=== PATIENT | male | born 1955 | race Native Hawaiian/Other Pacific Islander ===

== ENCOUNTER 2016-10-09 05:32 | Emergency (ER) | payer OTHER ==
[2016-10-09 06:31] LABS: Albumin 4.2 g/dL (3.9-5); Alkaline Phosphatase 78 units/L (35-129); Chloride 92.2 mmol/L (98-107); Potassium 3.6 mmol/L (3.6-5.0); Sodium 132 mmol/L (137-145)
[2016-10-09 06:41] LABS: Basophils % (Auto) 0.9 % (0.0-1.8); Eosinophils % (Auto) 0.3 % (0.0-4.3); Hematocrit 44.8 % (35.5-45.6); Hemoglobin 15.6 gm/dl (11.8-15.2); Mean Corpuscular HGB Conc 35 % (32-34); Mean Corpuscular Hemoglobin 32 pg (28-32); Mean Corpuscular Volume 91 fl (84-94); Platelet Count 375 K/mm3 (140-440); Red Blood Count 4.95 M/mm3 (3.65-5.03); Red Cell Distribution Width 12.7 % (13.2-15.2); White Blood Count 11.9 K/mm3 (4.5-11.0)
[2016-10-09 07:09] LABS: Alanine Aminotransferase 17 units/L (7-56); Albumin/Globulin Ratio 1.3 %; Amylase 29 units/L (27-131); Anion Gap 21 mmol/L; Blood Urea Nitrogen 4 mg/dL (9-20); Calcium 8.5 mg/dL (8.4-10.2); Carbon Dioxide 22 mmol/L (22-30); Glucose 128 mg/dL (75-100); Lipase 19 units/L (13-60); Total Protein 7.4 g/dL (6.3-8.2)
[2016-10-09] MEDS ORDERED: ALUM-MAG HYDROX-SIMETH 200-200-20MG/5ML PO ONE (08:16)
[2016-10-09] MEDS ORDERED: PEPCID IV ONE (08:16)
--- NOTE | 2016-10-09 08:21 | Emergency Department Report ---
ED Abdominal Pain HPI - General Chief Complaint: Abdominal Pain Stated Complaint: ABD PAIN Time Seen by Provider: 10/09/16 08:08 Source: patient, family Mode of arrival: Ambulatory Limitations: Language Barrier - History of Present Illness Initial Comments: 61-year-old male with a history of alcohol use here with complaint of several days of abdominal pain. Patient states that his pain is seemingly worsened over the last 2 days. Complains of pain in the epigastric region. Denies melena or hematochezia. No fevers chills nausea vomiting. Pain is worse with food and worse with laying down. He has some intermittent cough. -: Gradual Location: epigastric Radiation: none Quality: burning Consistency: intermittent Worsens With: eating Associated Symptoms: denies: nausea, constipation, hematemesis, hematochezia, melena Treatments Prior to Arrival: other (single dose of PPI) - Related Data Previous Rx's Medication Instructions Recorded Last Taken Type Famotidine [Pepcid] 20 mg PO BID #60 tablet 10/09/16 Unknown Rx Allergies Allergy/AdvReac Type Severity Reaction Status Date / Time No Known Allergies Allergy Verified 10/09/16 05:43 ED Review of Systems ROS: Stated complaint: ABD PAIN Other details as noted in HPI Comment: All other systems reviewed and negative Constitutional: denies: chills, fever Eyes: denies: eye pain, eye discharge, vision change ENT: denies: ear pain, throat pain Respiratory: denies: cough, shortness of breath, wheezing Cardiovascular: denies: chest pain, palpitations Endocrine: no symptoms reported Gastrointestinal: denies: abdominal pain, nausea, diarrhea Genitourinary: denies: urgency, dysuria Musculoskeletal: denies: back pain, joint swelling, arthralgia Skin: denies: rash, lesions Neurological: denies: headache, weakness, paresthesias Psychiatric: denies: anxiety, depression Hematological/Lymphatic: denies: easy bleeding, easy bruising ED Past Medical Hx - Past Medical History Previous Medical History?: Yes Hx Hypertension: Yes - Surgical History Past Surgical History?: No - Family History Family history: no significant - Social History Smoking Status: Former Smoker Substance Use Type: Alcohol - Medications Home Medications: Home Medications Medication Instructions Recorded Confirmed Last Taken Type Famotidine [Pepcid] 20 mg PO BID #60 tablet 10/09/16 Unknown Rx ED Physical Exam - General Limitations: Language Barrier General appearance: alert, in no apparent distress - Head Head exam: Present: atraumatic, normocephalic - Eye Eye exam: Present: normal appearance. Absent: scleral icterus, conjunctival injection - ENT ENT exam: Present: mucous membranes dry - Neck Neck exam: Present: normal inspection. Absent: lymphadenopathy - Respiratory Respiratory exam: Present: normal lung sounds bilaterally. Absent: respiratory distress - Cardiovascular Cardiovascular Exam: Present: regular rate, normal rhythm. Absent: systolic murmur, diastolic murmur, rubs, gallop - GI/Abdominal GI/Abdominal exam: Present: soft, distended, tenderness (mild epigastric tenderness), normal bowel sounds. Absent: guarding, rebound - Rectal Rectal exam: Present: deferred - Extremities Exam Extremities exam: Present: normal inspection - Back Exam Back exam: Present: normal inspection - Neurological Exam Neurological exam: Present: alert, oriented X3 - Psychiatric Psychiatric exam: Present: normal affect, normal mood - Skin Skin exam: Present: warm, dry, intact, normal color. Absent: rash ED Course Vital Signs 10/09/16 10/09/16 05:44 08:37 Temperature 98.2 F Pulse Rate 92 H Respiratory 20 20 Rate Blood Pressure 151/91 O2 Sat by Pulse 97 99 Oximetry ED Medical Decision Making - Lab Data Result diagrams: 10/09/16 06:01 10/09/16 06:01 Laboratory Results - last 24 hr 10/09/16 10/09/16 10/09/16 06:01 06:01 06:01 WBC 11.9 H RBC 4.95 Hgb 15.6 H Hct 44.8 MCV 91 MCH 32 MCHC 35 H RDW 12.7 L Plt Count 375 Lymph % (Auto) 16.4 Boundary % (Auto) 10.4 H Eos % (Auto) 0.3 Baso % (Auto) 0.9 Lymph # 2.0 Boundary # 1.2 H Eos # 0.0 Baso # 0.1 Seg Neutrophils % 72.0 H Seg Neutrophils # 8.6 H Sodium 132 L Potassium 3.6 Chloride 92.2 L Carbon Dioxide 22 Anion Gap 21 BUN 4 L Creatinine 0.5 L Estimated GFR > 60 BUN/Creatinine Ratio 8.00 Glucose 128 H Calcium 8.5 Total Bilirubin 1.10 AST 26 ALT 17 Alkaline Phosphatase 78 Troponin T < 0.010 Total Protein 7.4 Albumin 4.2 Albumin/Globulin Ratio 1.3 Amylase 29 Lipase 19 - EKG Data -: EKG Interpreted by Me EKG shows normal: sinus rhythm - EKG Data 10/09/16 08:20 Normal sinus rhythm rate 91 normal axis normal intervals no ST-T wave changes - Medical Decision Making Patient is a 61-year-old male here with what sounds like GERD. Patient has had 2 days worth of worsening abdominal pain. He is only tried a single dose of PPI at the pain is worse with eating and worse with laying flat. He had an intermittent cough. He has been drinking alcohol. EKG is nonischemic and he is hard score puts him at low risk. Plan to treat with H2 gio in addition to the PPI and counseled that he should not continue to drink. 2 negative troponins again I do not think this patient has cardiac ischemia. Plan to discharge patient with Pepcid in addition to his current prescriptions. Portions of this chart were dictated with dictation software. There may be dictation errors contained within this note. Critical care attestation.: If time is entered above; I have spent that time in minutes in the direct care of this critically ill patient, excluding procedure time. ED Disposition Clinical Impression: Alcoholic gastritis, GERD (gastroesophageal reflux disease) Disposition: DC-01 TO HOME OR SELFCARE Is pt being admited?: No Condition: Stable Instructions: Diet for Ulcers and Gastritis (ED), Gastroesophageal Reflux Disease (ED) Additional Instructions: Please avoid alcohol for the next several days. Please continue the Pepcid and the omeprazole. He may use oral antacids such as Maalox as well. Follow-up with gastroenterology. You may call [facility] at [phone] Prescriptions: Famotidine [Pepcid] 20 mg PO BID #60 tablet Referrals: PRIMARY CARE, [Primary Care Provider] - 3-5 Days
[2016-10-09 11:22] VITALS: BP 145/90
== END 2016-10-09 10:00 | disposition home or self-care (01) ==
LOC: ED 05:32
DX: K29.20 Alcoholic gastritis without bleeding (principal); K21.9 Gastro-esophageal reflux disease without esophagitis
CPT/HCPCS: 36415; 80053; 82150; 83690; 84484; 85025; 93005; 93010; 96374

== ENCOUNTER 2018-07-16 17:09 | Emergency (ER) | payer SELFPAY ==
--- NOTE | 2018-07-16 18:41 | Emergency Department Report ---
Blank Doc - Documentation Documentation: pt has been drinking ETOH for 5 days ago pt has epigastric abd pain and abd bloating no V/D +nausea no urinary sx 10 bottles of whiskey in 5 days last had ETOH at 5 hours ago non smoking no drug use
[2018-07-16 19:09] LABS: Basophils % (Auto) 0.6 % (0.0-1.8); Eosinophils % (Auto) 0.3 % (0.0-4.3); Lymphocytes # (Auto) 2.7 K/mm3 (1.2-5.4); Lymphocytes % (Auto) 36.1 % (13.4-35.0); Mean Corpuscular HGB Conc 36 % (32-34); Mean Corpuscular Volume 94 fl (84-94); Monocytes # (Auto) 0.6 K/mm3 (0.0-0.8); Monocytes % (Auto) 7.6 % (0.0-7.3); Platelet Count 338 K/mm3 (140-440); Red Blood Count 4.53 M/mm3 (3.65-5.03); Red Cell Distribution Width 13.4 % (13.2-15.2)
[2018-07-16 19:11] LABS: Hematocrit 42.7 % (35.5-45.6); Hemoglobin 15.5 gm/dl (11.8-15.2)
[2018-07-16 19:26] LABS: Alanine Aminotransferase 33 units/L (7-56); Albumin 4.1 g/dL (3.9-5); BUN/Creatinine Ratio 8; Blood Urea Nitrogen 4 mg/dL (9-20); Calcium 8.3 mg/dL (8.4-10.2); Hemolysis Index 10
--- NOTE | 2018-07-16 21:58 | Emergency Department Report ---
ED Alcohol HPI - General Chief Complaint: Alcohol Stated Complaint: BODY PAIN Time Seen by Provider: 07/16/18 18:38 Source: patient Mode of arrival: Ambulatory Limitations: No Limitations - History of Present Illness Initial Comments: Mr. Gallagher is a 62 yo male with hx of alcoholism who presents with abdominal pain and itching after severe 5 day alcohol binge. He normally drinks several shots per day. He has had 10 bottles of liquor in the past 5 days. Son desires evaluation for medical condition and referral to [facility] to deal with alcoholism. Due to intoxication, Mr. Gallagher provided limited history. Son provided history MD Complaint: alcohol intoxication Last Drink: just [employer] Chronic Alcohol Use: Yes Previous Visits for Alcohol Intoxication?: Yes Recent Trauma: No Associated Symptoms: abdominal pain - Related Data Previous Rx's Medication Instructions Recorded Last Taken Type Famotidine [Pepcid] 20 mg PO BID #60 tablet 10/09/16 Unknown Rx Allergies Allergy/AdvReac Type Severity Reaction Status Date / Time No Known Allergies Allergy Verified 07/16/18 17:10 ED Review of Systems ROS: Stated complaint: BODY PAIN Other details as noted in HPI Comment: Unobtainable due to pts medical conditions (acute intoxication) ED Past Medical Hx - Past Medical History Previous Medical History?: Yes Hx Hypertension: Yes - Surgical History Past Surgical History?: No - Social History Smoking Status: Never Smoker Substance Use Type: Alcohol - Medications Home Medications: Home Medications Medication Instructions Recorded Confirmed Last Taken Type Famotidine [Pepcid] 20 mg PO BID #60 tablet 10/09/16 Unknown Rx ED Physical Exam - General Limitations: No Limitations General appearance: alert, appears intoxicated - Head Head exam: Present: atraumatic, normocephalic - Eye Eye exam: Present: conjunctival injection. Absent: scleral icterus, periorbital swelling, periorbital tenderness - ENT ENT exam: Present: mucous membranes moist - Neck Neck exam: Present: normal inspection - Respiratory Respiratory exam: Present: normal lung sounds bilaterally. Absent: respiratory distress, wheezes, rales, rhonchi - Cardiovascular Cardiovascular Exam: Present: regular rate, normal rhythm, normal heart sounds. Absent: systolic murmur, diastolic murmur, rubs, gallop - GI/Abdominal GI/Abdominal exam: Present: soft, normal bowel sounds. Absent: distended, tenderness, guarding, rebound - Rectal Rectal exam: Present: deferred - Extremities Exam Extremities exam: Present: normal inspection - Back Exam Back exam: Present: normal inspection - Neurological Exam Neurological exam: Present: alert, altered - Psychiatric Psychiatric exam: Present: normal mood, other (labile affect intoxicated) - Skin Skin exam: Present: warm, dry, intact, normal color. Absent: rash ED Course Vital Signs 07/16/18 18:38 Temperature 98 F Pulse Rate 84 Respiratory 20 Rate Blood Pressure 137/82 [Right] O2 Sat by Pulse 98 Oximetry ED Medical Decision Making - Lab Data Result diagrams: 07/16/18 18:48 07/16/18 18:48 Laboratory Results - last 24 hr 07/16/18 07/16/18 07/16/18 18:48 18:48 18:48 WBC 7.4 RBC 4.53 Hgb 15.5 H Hct 42.7 MCV 94 MCH 34 H MCHC 36 H RDW 13.4 Plt Count 338 Lymph % (Auto) 36.1 H Band[place] % (Auto) 7.6 H Eos % (Auto) 0.3 Baso % (Auto) 0.6 Lymph # 2.7 [place] # 0.6 Eos # 0.0 Baso # 0.0 Seg Neutrophils % 55.4 Seg Neutrophils # 4.1 Sodium 132 L Potassium 3.8 Chloride 92.8 L Carbon Dioxide 22 Anion Gap 21 BUN 4 L Creatinine 0.5 L Estimated GFR > 60 BUN/Creatinine Ratio 8 Glucose 111 H Calcium 8.3 L Total Bilirubin 0.50 AST 42 H ALT 33 Alkaline Phosphatase 72 Total Protein 7.4 Albumin 4.1 Albumin/Globulin Ratio 1.2 Lipase 23 Plasma/Serum Alcohol 0.31 H - Radiology Data Radiology results: report reviewed CT abdomen and pelvis: fatty liver no acute process - Medical Decision Making 1. acute alcohol intoxication, given IVF, after observation he was ambulatory without difficulty. He was anxious to leave. Discharged to the care of his son. 2. abdominal pain normal lipase, normal hepatic panel CT revealed fatty liver 3. alcoholism: Referred to [facility] with reported hx of depression according to son Critical care attestation.: If time is entered above; I have spent that time in minutes in the direct care of this critically ill patient, excluding procedure time. ED Disposition Clinical Impression: Alcoholism, Acute alcohol intoxication, Abdominal pain Disposition: - TO HOME OR SELFCARE Is pt being admited?: No Does the pt Need Aspirin: No Condition: Stable Instructions: Alcohol Intoxication (ED), Abuse of Alcohol (ED), Abdominal Pain (ED) Referrals: RG CASTREJON MD [Primary Care Provider[facility] Print Language: [place]ORE[place]
[2018-07-16] MEDS ORDERED: NACL 0.9% 1000 ML 1,000 ML IV ONE ×2 (21:59→22:01)
[2018-07-16] MEDS ORDERED: ZOFRAN IV ONE (23:30)
[2018-07-16] MEDS ORDERED: MORPHINE IV ONE (23:30)
--- NOTE | 2018-07-16 23:33 | Cat Scan Report ---
PROCEDURE: CT ABDOMEN PELVIS W CON TECHNIQUE: Computerized axial tomography of the abdomen and pelvis was performed after the IV inject ion of iodinated nonionic contrast. CT DOSE LENGTH PRODUCT: 3598.7 mGycm HISTORY: epigastic abd pain, heavy ETOH use COMPARISONS: None . FINDINGS: Contrast-enhanced CT of the abdomen and pelvis was performed. The lung bases appear clear. ABDOMEN: There is fatty infiltration of the liver without focal hepatic lesion. The spleen, adrenal glands, pa ncreas, are unremarkable. The gallbladder is distended but is otherwise unremarkable. There is no mert al or ureteral calculus. There is are bilateral subcentimeter renal cysts. There is no small or large bowel obstruction. Pelvis: There is a normal appendix. There is no evidence of diverticulitis. The prostate and urinary bladder are within normal limits. There is no free air. There are vacuum degenerative changes at L4-L5. There is moderate right foraminal narrowing at this l evel suspected mild impingement of exiting right L4 nerve root, sagittal image [id number] IMPRESSION: ABDOMEN: Fatty infiltration of the liver Pelvis: Normal appendix This document is electronically signed by Jarrod Go MD., Jul 16 2018 11:31:32 PM ET
[2018-07-17 01:38] VITALS: BP 135/75
== END 2018-07-17 01:35 | disposition home or self-care (01) ==
LOC: ED 17:09
DX: F10.129 Alcohol abuse with intoxication, unspecified (principal); R10.9 Unspecified abdominal pain; I10 Essential (primary) hypertension
CPT/HCPCS: 36415; 74177; 80053; 83690; 85025; 96361; 96374; 96375; 99284; G0480; J2270; J2405; J7030; Q9967; 80320